=== PATIENT | male | born 1945 | race Hispanic/Latino ===

== ENCOUNTER 2019-04-18 21:07 | Inpatient (IN) | payer MEDICARE ==
[~2019-04-18] VITALS: Ht 167.6 cm; Wt 80.7 kg
[2019-04-18] MEDS ORDERED: ONDANSETRON HCL INJ 2MG/ML 2ML 2 MG/ML VIAL IV STA (22:06)
[2019-04-18] MEDS ORDERED: SODIUM CHLORIDE 0.9% 1000ML 1,000 ML IV SCH (22:15)
[2019-04-18 22:38] LABS: BASOPHILS % 0.3 % (0.0-1.0); EOSINOPHILS % 0.5 % (0.0-6.0); HEMATOCRIT 40.5 % (38.2-49.6); HEMOGLOBIN 13.8 g/dL (14.0-18.0); LYMPHOCYTES # (AUTO) 0.6 (1.0-3.2); MEAN CORPUSCULAR HEMOGLOBIN 31.9 pg (28-32); MEAN CORPUSCULAR HGB CONC 34.1 g/dL (31-35); MEAN CORPUSCULAR VOLUME 93.8 fL (81-99); MONOCYTES # (AUTO) 0.4 (0.2-0.8); MONOCYTES % 5.9 % (4.4-11.3); NEUTROPHILS # (AUTO) 5.2 (2.1-6.9); PLATELET COUNT 238 x10e3/uL (140-360); RED BLOOD COUNT 4.32 x10e6/uL (4.3-5.7); RED CELL DISTRIBUTION WIDTH 12.9 % (11.7-14.4)
[2019-04-18] MEDS ORDERED: DICYCLOMINE HCL 20 MG/2 ML VIAL IM ONE (22:45)
[2019-04-18 22:58] LABS: ALANINE AMINOTRANSFERASE 13 IU/L (0-55); ALBUMIN 3.6 g/dL (3.5-5.0); ALBUMIN/GLOBULIN RATIO 1.2 (0.8-2.0); ALKALINE PHOSPHATASE 94 IU/L (40-150); BLOOD UREA NITROGEN 10 mg/dL (7-26); BUN/CREATININE RATIO 14 (6-25); CALCIUM 9.5 mg/dL (8.4-10.2); CARBON DIOXIDE 27 mmol/L (22-29); CHLORIDE 101 mmol/L (98-107); CREATINE KINASE 80 IU/L (30-200); EST GLOMERULAR FILTRATION RATE > 60 ML/MIN (60-); GLUCOSE 143 mg/dL (74-118); SODIUM 136 mmol/L (136-145)
[2019-04-18] MEDS ORDERED: PANTOPRAZOLE 40 MG 10ML VIAL IV STA (23:55)
[2019-04-18] MEDS ORDERED: FAMOTIDINE 20 MG/2 ML VIAL IV STA (23:55)
[2019-04-19] VITALS (7 sets, daily range): BP systolic 150–168; BP diastolic 74–81
[2019-04-19] MEDS ORDERED: MORPHINE SULFATE INJ 4 MG/ML INJ 1ML IV ONE
[2019-04-19] MEDS ORDERED: IOPAMIDOL 370 MG/ML 200 ML INFUS..BTL INJ ONE (00:09)
[2019-04-19] MEDS ORDERED: SODIUM CHLORIDE 0.9% 50ML 50 ML ONE (00:09)
--- NOTE | 2019-04-19 01:09 | Diagnostic Imaging Report ---
EXAM: CT Abdomen and Pelvis WITH contrast INDICATION: Abdominal Pain COMPARISON: None. TECHNIQUE: Abdomen and pelvis were scanned utilizing a multidetector helical scanner from the lung base to the pubic symphysis after administration of IV contrast. Coronal and sagittal reformations were obtained. Routine protocol was performed. Scan was performed when during portal venous phase. IV CONTRAST: 100 cc of Isovue-370. ORAL CONTRAST: Water COMPLICATIONS: None RADIATION DOSE: Total DLP: 461.5 mGy*cm Estimated effective dose: (DLP x 0.015 x size factor) mSv CTDIvol has been reviewed. It is below the limits set by the Radiation Protocol Committee (RPC). FINDINGS: LINES and TUBES: None. LOWER THORAX: Multiple right middle and lower lobe pulmonary nodules, for example a subpleural right middle lobe nodule measuring 4 mm on series 2, image 7, and a right lower lobe nodule measuring 4 mm on image 8. Small to moderate predominantly fat containing hiatal hernia. Scattered coronary atherosclerosis. HEPATOBILIARY: Diffuse hepatic steatosis. No evidence of focal lesion. No biliary ductal dilation. GALLBLADDER: Status post cholecystectomy. SPLEEN: No splenomegaly. PANCREAS: No focal masses or ductal dilatation. ADRENALS: No adrenal nodules KIDNEYS/URETERS: Kidneys enhance symmetrically. No evidence of hydronephrosis, solid mass, or stone. Simple appearing 2.6 cm left midpole renal cyst. Minimally complex left lower pole renal cyst measuring 2.9 cm with punctate peripheral calcification on series 2, image 46. GI TRACT: There are multiple mildly dilated proximal to mid small bowel loops, measuring up to 3.1 cm. There is relative decompression of the distal ileum. There is a gradual transition point in the right lower quadrant from series 2, image 40-50. Air and stool is seen within the colon. Colonic diverticulosis without CT evidence of diverticulitis. Normal appendix. PELVIC ORGANS/BLADDER: Prostatomegaly, measuring up to 5.3 cm with coarse calcifications. LYMPH NODES: No lymphadenopathy. VESSELS: Mild atherosclerotic calcifications of the abdominal aorta and branch vessels. Mild mesenteric vascular engorgement. PERITONEUM / RETROPERITONEUM: No free air or fluid. BONES AND SOFT TISSUES: Unremarkable. CONCLUSION: Findings consistent with partial small bowel obstruction. Gradual transition point in the right lower quadrant, likely secondary to the adhesions in the setting of prior surgery. Diffuse hepatic steatosis. Multiple pulmonary nodules measuring up to 4 mm in the lung bases, which may be infectious or inflammatory. In a low risk patient, no further follow-up is required. If the patient has a risk factor for malignancy, a follow-up nonurgent chest CT is suggested. Minimally complex left lower pole renal cyst. Suggest follow-up nonurgent renal ultrasound. Signed by: Dr. Osmin Morel MD on 04/19/2019 1:06 AM
[2019-04-19 01:26] LABS: BILIRUBIN,URINE NEGATIVE (NEGATIVE); CLARITY,URINE CLEAR (CLEAR); COLOR,URINE YELLOW (YELLOW); KETONES,URINE NEGATIVE (NEGATIVE); LEUKOCYTE ESTERASE ,URINE NEGATIVE (NEGATIVE); NITRITE,URINE NEGATIVE (NEGATIVE); PROTEIN,URINE DIPSTICK NEGATIVE (NEGATIVE); URINE UROBILINOGEN 0.2 mg/dL (0.2 - 1)
[2019-04-19] MEDS ORDERED: FENTANYL CITRATE/PF 100MCG/2 ML INJ IV ONE (01:45)
[2019-04-19 01:46] LABS: BACTERIA,URINE RARE /HPF; EPITHELIAL CELLS,URINE RARE /LPF; MUCUS,URINE MANY (RARE); RBC,URINE 0-5 /HPF (0-5); WBC,URINE (MAN) 0-5 /HPF (0-5)
--- OUTSIDE RECORDS SUMMARY | 2019-04-19 02:02 | XMS REPORT ---
Author Author [facility] Address Unknown Phone Unavailable Care Team Providers Care Bass Viol Repairer Name Role Phone KAMRON TONEY Unavailable Unavailable Problems This patient has no known problems. Allergies, Adverse Reactions, Alerts This patient has no known allergies or adverse reactions. Medications This patient has no known medications. Results Test Description Test Time Test Comments Text Results Atomic Results Result Comments CT ABDOMEN/PELVIS W 2019-04-19 00:54:00 [place] [id number] [place] [id number] Patient Name: CALIN GARCIA MR #: [id number] : 1945 Age/Sex: 73/M Req #: [id number] Adm Physician: Ordered by: KAMRON TONEY DO Report #: [id number] Location: ER Room/Bed: Procedure: [id number] CT/CT ABDOMEN/PELVIS W Exam Date: 04/19/19 Exam Time: 0005 REPORT STATUS: Signed EXAM: CT Abdomen and Pelvis WITH contrast INDIC ATION: Abdominal Pain COMPARISON: None. TECHNIQUE: Abdomen and pelvis were scanned utilizing a multidetector helical scanner from the lung base to the pubic symphysis after administration of IV contrast. Coronal and sagittal reformations were obtained. Routine protocol was performed. Scan was performed when during portal venous phase. IV CONTRAST: 100 cc of Isovue-370. ORAL CONTRAST: Water COMPLICATIONS: None RADIATION DOSE: Total DLP: 461.5 mGy*cm Estimated effective dose: (DLP x 0.015 x size factor) mSv CTDIvol has been reviewed. It is below the limits set by the Radiation Protocol Committee (RPC). FINDINGS: LINES and TUBES: None. LOWER THORAX: Multiple right middle and lower lobe pulmonary nodules, for example a subpleural right middle lobe nodule measuring 4 mm on series 2, image 7, and a right lower lobe nodule measuring 4 mm on image 8. Small to moderate predominantly fat containing hiatal hernia. Scattered coronary atherosclerosis. HEPATOBILIARY: Diffuse hepatic steatosis. No evidence of focal lesion. No biliary ductal dilation. GALLBLADDER: Status post cholecystectomy. SPLEEN: No splenomegaly. PANCREAS: No focal masses or ductal dilatation. ADRENALS: No adrenal nodules KIDNEYS/URETERS: Kidneys enhance symmetrically. No evidence of hydronephrosis, solid mass, or stone. Simple appearing 2.6 cm left midpole renal cyst. Minimally complex left lower pole renal cyst measuring 2.9 cm with punctate peripheral calcification on series 2, image 46. GI TRACT: There are multiple mildly dilated proximal to mid small bowel loops, measuring up to 3.1 cm. There is relative decompression of the distal ileum. There is a gradual transition point in the right lower quadrant from series 2, image 40- 50. Air and stool is seen within the colon. Colonic diverticulosis without CT evidence of diverticulitis. Normal appendix. PELVIC ORGANS/BLADDER: Pr ostatomegaly, measuring up to 5.3 cm with coarse calcifications. LYMPH NODES: No lymphadenopathy. VESSELS: Mild atherosclerotic calcifications of the abdominal aorta and branch vessels. Mild mesenteric vascular engorgement. PERITONEUM / RETROPERITONEUM: No free air or fluid. BONES AND SOFT TISSUES: Unremarkable. CONCLUSION: Findings consistent with partial small bowel obstruction. Gradual transition point in the right lower quadrant, likely secondary to the adhesions in the setting of prior surgery. Diffuse hepatic steatosis. Multiple pulmonary nodules measuring up to 4 mm in the lung bases, which may be infectious or inflammatory. In a low risk patient, no further follow-up is required. If the patient has a risk factor for malignancy, a follow-up nonurgent chest CT is suggested. Minimally complex left lower pole renal cyst. Suggest follow-up nonurgent renal ultrasound. Signed by: Dr. Bertrand Valle MD on 04/19/2019 1:06 AM Dict ated By: BERTRAND VALLE MD 5 Transcribed By: NEGRO on 04/19/19105 COPY TO: KAMRON TONEY,
[2019-04-19] MEDS ORDERED: BENZOCAINE 20% SPR 60 ML CAN MT ONE (02:15)
[2019-04-19] MEDS ORDERED: BENZOCAINE/TETRACAINE/BUTAMBEN AERO SPRAY 56 GM CAN ONE (02:33)
[2019-04-19] MEDS: SODIUM CHLORIDE 0.9% 250ML IRRIG IR SCH ×5 (03:51→23:18)
--- NOTE | 2019-04-19 04:15 | NUR ---
INITIAL ASSESSMENT COMPLETE, PT WITH 14 FR NG TUBE TO RIGHT NARE, TO LOW CONTINUOUS WALL SUCTION, SUCKING BLOODY FLUID INTO CANISTER, NG TUBE IRRIGATED WITH 30CC WATER, CHECK PLACEMENT BEFORE HAND, PLACEMENT IN STOMACH, PT ALERT AND ORIENTED, FAMILY AT BEDSIDE, CALL LIGHT IN REACH
[2019-04-19] MEDS ORDERED: LISINOPRIL10 MG PO (05:29)
[2019-04-19] MEDS ORDERED: FLOMAX0.4 MG PO (05:29)
[2019-04-19] MEDS ORDERED: METFORMIN HCL850 MG PO (05:29)
[2019-04-19] MEDS ORDERED: ATORVASTATIN CA10 MG PO (05:29)
--- NOTE | 2019-04-19 07:10 | NUR ---
PATIENT IS AWAKE, ALERT, AND IN STABLE CONDITION WITH NO S/S OF RESPIRATORY DISTRESS. NO PAIN VOICED. NG TUBE CONNECTED TO CONTINUOUS LOW SUCTION. PRESENT IN ROOM. CALL LIGHT IS WITHIN REACH, PATIENT INSTRUCTED TO CALL FOR ASSISTANCE NEEDED.
[2019-04-19] MEDS ORDERED: DEXTROSE 50% SYRINGE 50 ML IV PRN (07:45)
[2019-04-19] MEDS ORDERED: PROMETHAZINE 12.5MG/ NACL 0.9% 12.5 MG/50 ML BAG IV PRN (08:00)
[2019-04-19] MEDS: HYDROMORPHONE 1MG/1ML INJ IV PRN ×3 (08:47→23:32)
[2019-04-19] MEDS: SODIUM CHLORIDE 0.9% 1000ML 1,000 ML IV SCH (08:49)
[2019-04-19] MEDS: INSULIN LISPRO 100 UNIT/1 ML 3ML VIAL SQ SCH ×3 (11:30→21:00)
--- NOTE | 2019-04-19 13:34 | NUR ---
H&P cc: abdominal pain HPI: 73yoM, PCP , admitted with epigastric pain with intractable N/V for 2 days. Last BM yesterday. pt had SBO 6 months ago, managed conservatively. Does have hx of surgeries on abdomen. PMH: DM, SBO 2018 PSHx: umbilical hernia in 2014, cholecystectomy, 2014 Allergies; see emr Fh/SH; no illicits meds; see MAR ROS: no f/c/s/HURTADO/cp/sob/dizziness/diarrhea/vision changes/skin rash v/s; revd PE tired appearing; NGT in place anicteric ns1s2 mod bs soft nd; mild tenderness in mid abdomen no edema skin dry n. affect labs/meds; revd A/P: SBO- NGT; NPO; sx eval Hepatic steatosis- mando need to loose weight Micro-Pulmonary nodules- f/u outpt Left renal cyst PLAN NPO; optimize lytes; sx consult; IVF Needs CT chest with contrast in 7 days Needs Renal U/S SCD/pepcid Dispo: Elvia Borrego MD, PhD
[2019-04-19 15:36] LABS: CHOL/HDL RATIO 3.2 (3.9-4.7)
--- NOTE | 2019-04-19 15:49 | Consultation ---
DATE OF CONSULTATION: 04/19/2019 HISTORY OF PRESENT ILLNESS: The patient is a 73-year-old male, who presents with complaints of abdominal pain with nausea and vomiting. The symptoms started yesterday. He has had normal bowel movement yesterday and continues to pass flatus. He was evaluated CT scan of the abdomen and pelvis, which revealed findings of dilated small bowel, but air seen in the colon with findings suggestive of partial small bowel obstruction. The patient has had similar symptoms one time in the past, was hospitalized about 6 months ago. PAST MEDICAL HISTORY: Significant for diabetes, hypertension, takes metformin and lisinopril only. PAST SURGICAL HISTORY: Previous surgery was a pair of umbilical hernia. ALLERGIES: HE HAS NO KNOWN ALLERGIES. MEDICATIONS: Other medication are atorvastatin and Flomax. FAMILY HISTORY: Noncontributory. SOCIAL HISTORY: The patient does not smoke cigarettes or drink alcohol. REVIEW OF SYSTEMS: As stated above, otherwise was negative. PHYSICAL EXAMINATION: GENERAL: The patient is awake and alert, in no distress. VITAL SIGNS: Normal. HEENT: The sclerae is not icteric. NECK: Supple with no masses. LUNGS: Equal breath sounds are clear bilaterally. CARDIAC: Regular rate and rhythm with no murmur. ABDOMEN: Soft. There is no hernia apparent. There is no significant tenderness. No mass. No organomegaly. EXTREMITIES: Have no edema. Pulses are palpable. NEUROLOGIC: Intact. LABS TEST: White blood cell count is normal. Hemoglobin and hematocrit are normal. Chemistries were essentially normal. ASSESSMENT: A 73-year-old male with findings of partial small bowel obstruction. There are no signs of acute abdomen. No findings would warrant immediate surgical intervention. At this point, recommend continue the patient n.p.o., on IV fluids. He already has an NG tube, hence we will continue this. PLAN: To repeat the abdominal x-ray tomorrow. Thank you for asking me to see Mr. Davis. MD NANCY Wang/REMIGIO /[id number]
[2019-04-19] MEDS: FAMOTIDINE 20 MG/2 ML VIAL IV SCH (16:11)
--- NOTE | 2019-04-19 16:32 | NUR ---
INFORMED DR. SAEZ OF PATIENT'S BP OF 168/81 AND HR OF 61- AWAITING ORDER FOR BP MEDICATION.
--- NOTE | 2019-04-19 16:34 | Diagnostic Imaging Report ---
Renal ultrasound, 04/19/2019. History: Renal lesion. Comparison: CT abdomen and pelvis from earlier today. Discussion: Transverse and longitudinal images of the kidneys were obtained demonstrating normal renal sizes and echogenicities. There is no evidence of hydronephrosis, suspicious mass, or renal calculus. 2 oval anechoic structures are present arising from the left kidney exophytically, one in the interpolar region measuring 2. 2 x 2 0.5 x 2.7 cm and one in the lower pole measuring 3.1 x 2.7 x 2.3 cm. The punctate peripheral calcification involving the lower pole cysts described on the CT is not visible on this ultrasound. The right kidney measures 10.5 cm and the left kidney measures 12.0 cm in length. Renal cortex measures 1.5 and 1.6 cm respectively. The urinary bladder is unremarkable. Bilateral ureteral jets are identified. Bladder volume measures 129 mL. There is no evidence of free fluid. IMPRESSION: 2 benign-appearing left renal cysts. Otherwise unremarkable renal ultrasound. Signed by: Ian Pierce on 04/19/2019 4:31 PM
[2019-04-19] MEDS ORDERED: PROMETHAZINE 12.5MG/ NACL 0.9% 50 ML IV PRN (17:00)
--- NOTE | 2019-04-19 20:52 | NUR ---
RECEIVED PT IN BED AOX3 .PT HAS NG TUBE .RECUPERATIONS ARE EVEN AND UNLABORED .LEFT AC 20 G NS AT 60CC/HR .FAMILY AT THE BEDSIDE .CALL LIGHT WITH IN REACH .CONTINUE TO MONITOR
[2019-04-20] VITALS (8 sets, daily range): BP systolic 136–149; BP diastolic 63–76
[2019-04-20] MEDS: SODIUM CHLORIDE 0.9% 1000ML 1,000 ML IV SCH ×2 (01:26→16:33)
[2019-04-20] MEDS: SODIUM CHLORIDE 0.9% 250ML IRRIG IR SCH ×6 (01:45→21:01)
--- NOTE | 2019-04-20 05:00 | Diagnostic Imaging Report ---
Two view abdomen series. CPT 63698 CLINICAL HISTORY: Small bowel obstruction TECHNIQUE: Flat and upright views of the abdomen obtained. COMPARISON: CT abdomen/pelvis 0025 hours. Medical Devices: Nasogastric tube terminates at the GE junction with the sidehole within the esophagus. Cholecystectomy clips are present. Bowel: Dilated small bowel loops are redemonstrated measuring up to 4.2 cm (previously, 4.0 cm). Multiple air-fluid levels are present. There is a small amount of air in the descending colon. No colonic dilatation. Calcifications: None over the renal shadows or along the expected course of the ureters Organomegaly: None There is excreted contrast in the bladder. Free air: None Lung bases: Clear Bones: Degenerative changes of the lumbar spine superimposed on mild dextroscoliosis IMPRESSION: Multiple dilated small bowel loops consistent with obstruction. Enteric tube terminates at the GE junction. Recommend advancement by 7 to 10 cm to ensure sidehole placement within the stomach. Signed by: Dr. Jemal Villanueva MD on 04/20/2019 4:57 AM
--- NOTE | 2019-04-20 05:56 | NUR ---
PT RESTED DURING THE NIGHT.C/O PAIN AND GIVEN ORDERED PAIN MEDICATION .IRRIGATED THE NG TUBE X3 FAMILY AT THE BEDSIDE .CALL LIGHT WITH IN REACH .CONTINUE TO MONITOR
[2019-04-20 06:03] LABS: BASOPHILS % 0.4 % (0.0-1.0); EOSINOPHILS # (AUTO) 0.1 (0.0-0.4); EOSINOPHILS % 0.7 % (0.0-6.0); HEMATOCRIT 37.2 % (38.2-49.6); HEMOGLOBIN 12.5 g/dL (14.0-18.0); LYMPHOCYTES # (AUTO) 0.7 (1.0-3.2); LYMPHOCYTES % 9.5 % (18.0-39.1); MEAN CORPUSCULAR HEMOGLOBIN 31.8 pg (28-32); MEAN CORPUSCULAR HGB CONC 33.6 g/dL (31-35); MEAN CORPUSCULAR VOLUME 94.7 fL (81-99); MONOCYTES # (AUTO) 0.9 (0.2-0.8); MONOCYTES % 13.5 % (4.4-11.3); NEUTROPHILS # (AUTO) 5.3 (2.1-6.9); NEUTROPHILS % 75.8 % (38.7-80.0); PLATELET COUNT 228 x10e3/uL (140-360); RED BLOOD COUNT 3.93 x10e6/uL (4.3-5.7); RED CELL DISTRIBUTION WIDTH 13.1 % (11.7-14.4)
[2019-04-20 06:19] LABS: ANION GAP 9.8 mmol/L (8-16); BLOOD UREA NITROGEN 14 mg/dL (7-26); BUN/CREATININE RATIO 19 (6-25); CARBON DIOXIDE 27 mmol/L (22-29); CHLORIDE 100 mmol/L (98-107); CREATININE, SERUM 0.72 mg/dL (0.72-1.25); EST GLOMERULAR FILTRATION RATE > 60 ML/MIN (60-); GLUCOSE 116 mg/dL (74-118); MAGNESIUM 1.8 MG/DL (1.3-2.1); POTASSIUM 3.8 mmol/L (3.5-5.1); SODIUM 133 mmol/L (136-145)
[2019-04-20 06:42] LABS: MAGNESIUM 1.9 MG/DL (1.3-2.1); PHOSPHORUS 2.3 MG/DL (2.3-4.7)
--- NOTE | 2019-04-20 07:06 | NUR ---
PATIENT IS AWAKE, ALERT, AND IN STABLE CONDITION WITH NO S/S OF RESPIRATORY DISTRESS. NO PAIN VOICED. IV FLUIDS INFUSING. ASSISTED PATIENT TO SIT IN RECLINER- PRESENT IN ROOM. NG TUBE CONNECTION TO LOW CONTINUOUS SUCTION. CALL LIGHT IS WITHIN REACH, PATIENT INSTRUCTED TO CALL FOR ASSISTANCE NEEDED.
--- NOTE | 2019-04-20 07:24 | NUR ---
BEDSIDE REPORT GIVEN TO THE ONCOMING NURSE
[2019-04-20] MEDS: INSULIN LISPRO 100 UNIT/1 ML 3ML VIAL SQ SCH ×4 (07:30→21:00)
[2019-04-20] MEDS: FAMOTIDINE 20 MG/2 ML VIAL IV SCH ×2 (07:56→16:33)
--- NOTE | 2019-04-20 11:50 | NUR ---
PATIENT AMBULATING IN THE HALLWAY AT THIS TIME
--- NOTE | 2019-04-20 16:15 | NUR ---
Visit made by the Spiritual Care Department Pastoral Visitor, Martine Lewis. PV provided pastoral presence, prayer, hospitality, and supportive listening. Pastoral Visitor informed pt/family of the scope of [employer] and availability. MARYANN DO Territory Business Manager Spiritual Care Department O: [phone] Pager: [phone] ([phone] number calling from)
--- NOTE | 2019-04-20 19:06 | NUR ---
PATIENT HAS SHOWERED AND REPOSITION IN BED WITH NG TUBE CONNECTED TO LOW CONTINUOUS SUCTION. PATIENT IS IN STABLE CONDITION WITH NO S/S OF RESPIRATORY DISTRESS-NO PAIN VOICED. IV FLUIDS INFUSING. CALL LIGHT IS WITHIN REACH, PATIENT INSTRUCTED TO CALL FOR ASSISTANCE NEEDED. REPORT GIVEN TO ONCOMING NURSE.
--- NOTE | 2019-04-20 19:30 | NUR ---
patient received awake, alert, lying quietly in bed. no c/o pain noted. ngt to right nare remains to low cont suction. pm assessment complete. patient instructed to call for assistance when needed.
--- NOTE | 2019-04-20 23:40 | NUR ---
IM- progress note O/N no events H&P ROS: no f/c/s/HURTADO/cp/sob/dizziness/diarrhea/vision changes/skin rash v/s; revd PE tired appearing; NGT in place anicteric ns1s2 mod bs soft nd; mild tenderness in mid abdomen no edema skin dry n. affect labs/meds; revd A/P: SBO- NGT; NPO; sx eval Hepatic steatosis- mando need to loose weight Micro-Pulmonary nodules- f/u outpt Left renal cyst PLAN NPO; optimize lytes; sx consult; IVF Needs CT chest with contrast in 7 days Needs Renal U/S SCD/pepcid Dispo: 04/20 hba1c/LDL 5.69/69; encouraged to ambulate; renal U/S only cysts; get MARY Borrego MD, PhD
[2019-04-21] VITALS (9 sets, daily range): BP systolic 136–167; BP diastolic 63–79
[2019-04-21] MEDS: SODIUM CHLORIDE 0.9% 250ML IRRIG IR SCH ×2 (01:45→05:45)
--- NOTE | 2019-04-21 01:45 | NUR ---
patient oob to bathroom. no bm noted at this time. ngt irrigated per orders. no c/o pain noted at this time.
--- NOTE | 2019-04-21 05:15 | NUR ---
patient to radiology dept for abd xray 2 view via wheelchair at this time.
--- NOTE | 2019-04-21 05:47 | Diagnostic Imaging Report ---
Two view abdomen series. CPT 54817 CLINICAL HISTORY: Small bowel obstruction TECHNIQUE: Flat and upright views of the abdomen obtained. COMPARISON: 04/20/2019. Medical Devices: Nasoenteric tube remains in the distal esophagus. Cholecystectomy clips are stable. Bowel: Dilated small bowel loops are fewer in number. Small bowel loops measure up to 3.5 cm in diameter. No air-fluid levels. Air mixed with stool throughout the large bowel without dilatation. No pneumatosis. Calcifications: None Organomegaly: None Free air: None Lung bases: Mild left basilar atelectasis Bones: Stable IMPRESSION: Decreasing number of dilated small bowel loops. Enteric tube remains in the distal esophagus. Advancement by 7 to 10 cm is recommended. Signed by: Dr. Jemal Villanueva MD on 04/21/2019 5:44 AM
[2019-04-21 05:52] LABS: BASOPHILS % 0.5 % (0.0-1.0); EOSINOPHILS # (AUTO) 0.1 (0.0-0.4); HEMATOCRIT 37.1 % (38.2-49.6); HEMOGLOBIN 12.5 g/dL (14.0-18.0); LYMPHOCYTES % 12.9 % (18.0-39.1); MEAN CORPUSCULAR HEMOGLOBIN 32.2 pg (28-32); MEAN CORPUSCULAR HGB CONC 33.7 g/dL (31-35); MEAN CORPUSCULAR VOLUME 95.6 fL (81-99); MONOCYTES # (AUTO) 0.7 (0.2-0.8); MONOCYTES % 10.1 % (4.4-11.3); NEUTROPHILS # (AUTO) 5.5 (2.1-6.9); NEUTROPHILS % 75.2 % (38.7-80.0); PLATELET COUNT 219 x10e3/uL (140-360); RED BLOOD COUNT 3.88 x10e6/uL (4.3-5.7); RED CELL DISTRIBUTION WIDTH 12.8 % (11.7-14.4)
--- NOTE | 2019-04-21 06:00 | NUR ---
Dr. Neil here to see patient. patients iv out at this time. Dr. Neil ordered for iv to stay out, d/c ivf, d/c ngt and to start clear liquids. ngt removed at this time without difficulty. no c/o pain noted at this time.
[2019-04-21 06:18] LABS: ANION GAP 13.4 mmol/L (8-16); BLOOD UREA NITROGEN 11 mg/dL (7-26); BUN/CREATININE RATIO 17 (6-25); CALCIUM 8.1 mg/dL (8.4-10.2); CARBON DIOXIDE 23 mmol/L (22-29); CHLORIDE 103 mmol/L (98-107); CREATININE, SERUM 0.66 mg/dL (0.72-1.25); EST GLOMERULAR FILTRATION RATE > 60 ML/MIN (60-); GLUCOSE 82 mg/dL (74-118); MAGNESIUM 1.9 MG/DL (1.3-2.1); POTASSIUM 3.4 mmol/L (3.5-5.1); SODIUM 136 mmol/L (136-145)
[2019-04-21] MEDS: INSULIN LISPRO 100 UNIT/1 ML 3ML VIAL SQ SCH ×4 (07:30→20:13)
[2019-04-21] MEDS: FAMOTIDINE 20 MG TAB PO SCH ×2 (08:45→16:51)
--- NOTE | 2019-04-21 19:30 | NUR ---
Patient received awake, alert, sitting up in chair in room. no c/o pain noted. pm assessment complete. patient instructed to call for assistance when needed.
[2019-04-22 05:32] VITALS: BP 144/67
[2019-04-22] MEDS: INSULIN LISPRO 100 UNIT/1 ML 3ML VIAL SQ SCH (07:30)
[2019-04-22 08:00] VITALS: BP 149/78
[2019-04-22] MEDS: FAMOTIDINE 20 MG TAB PO SCH (08:45)
[2019-04-22 11:05] LABS: POTASSIUM 3.9 mmol/L (3.5-5.1)
[2019-04-22 12:00] VITALS: BP 135/77
--- NOTE | 2019-04-22 12:16 | NUR ---
Pt discharged home at this time. Pt verbalized understanding of all discharge and follow up appts. 0 s/s of acute distress noted at time of discharge.
== END 2019-04-22 12:18 | disposition home or self-care (01) | DRG 390 ==
LOC: ER 21:07 → ERHOLD 04-19 02:00 → MED/SURG3 04-19 04:16
PROVIDERS: ADMIT Internal Medicine; ATTEND Internal Medicine
DX: K56.51 Intestinal adhesions [bands], with partial obstruction (principal); I10 Essential (primary) hypertension; E11.9 Type 2 diabetes mellitus without complications; Z79.84 Long term (current) use of oral hypoglycemic drugs; Z90.49 Acquired absence of other specified parts of digestive tract; Z98.890 Other specified postprocedural states; K76.0 Fatty (change of) liver, not elsewhere classified; R91.8 Other nonspecific abnormal finding of lung field; N28.1 Cyst of kidney, acquired
CPT/HCPCS: 36415; 74019; 74177; 76770; 80048; 80053; 80061; 81001; 82550; 82553; 82948; 83036; 83690; 83735; 84100; 84132; 84484; 85025; 99284; J0500; J1170; J2270; J2405; J2550; J3010; J7030; Q9967